=== PATIENT | male | born 1955 | race African-American/Black ===

== ENCOUNTER 2025-05-05 01:34 | Inpatient (IN) | payer OTHER, MEDICARE ==
[~2025-05-05] VITALS: Ht 177.8 cm; Wt 74.8 kg
[2025-05-05 01:44] VITALS: O2SAT 98
[2025-05-05 02:48] LABS: INR 1.1; PROTHROMBIN TIME 11.5 sec (9.6-11.0)
[2025-05-05 02:49] LABS: BASOPHILS % 0.2 % (0.0-2.0); DIFFERENTIAL COMMENT 0; EOSINOPHILS % 0.3 % (0.0-5.0); HEMATOCRIT. 41.1 % (42.0-52.0); HEMOGLOBIN. 13.9 g/dL (14.0-18.0); LYMPHOCYTES % 22.3 % (20.0-50.0); MEAN CORPUSCULAR HEMOGLOBIN 27.8 pg (28.0-32.0); MEAN CORPUSCULAR HGB CONC 33.8 g/dL (31.0-37.0); MEAN CORPUSCULAR VOLUME 82.2 fL (80.0-94.0); MEAN PLATELET VOLUME 9.8 fl (7.4-10.4); MONOCYTES % 11.4 % (2.0-8.0); NEUTROPHILS % 65.8 % (40.0-76.0); PLATELET 156 x1000/uL (130-400); WHITE BLOOD COUNT 7.7 x1000/uL (4.5-11.0)
[2025-05-05 02:50] LABS: CHLORIDE 99 mEq/L (98-107); SODIUM 138 mEq/L (136-145)
[2025-05-05 02:51] LABS: CARBON DIOXIDE 27 mEq/L (21-32)
[2025-05-05 02:54] LABS: POTASSIUM 2.4 mEq/L (3.5-5.1)
[2025-05-05 02:56] LABS: GLUCOSE 136 mg/dL (70-105); UREA NITROGEN BLOOD 17 mg/dL (9-23)
[2025-05-05 02:57] LABS: ETHANOL BLOOD < 10 mg/dL (<10)
[2025-05-05 02:58] LABS: TROPONIN I HIGH SENSITIVITY 12 ng/L (3.0-53)
[2025-05-05] MEDS: POTASSIUM CHLORIDE 20MEQ TABLET SR PO ONE (03:08)
[2025-05-05] MEDS: KCL 10MEQ/50ML PREMIX 50 ML IV SCH ×2 (03:20→12:33)
[2025-05-05] MEDS: SODIUM CHLORIDE 0.9% 1,000 ML IV ONE (03:37)
[2025-05-05 05:08] LABS: TROPONIN I HIGH SENSITIVITY 11 ng/L (3.0-53)
[2025-05-05] MEDS ORDERED: MAGNESIUM/ALUMINUM HYDROXIDE/SIMETHICONE 30ML UDC PO PRN (07:45)
[2025-05-05] MEDS ORDERED: BISACODYL 10MG SUPP PR PRN (07:45)
[2025-05-05] MEDS ORDERED: ACETAMINOPHEN 325MG TABLET PO PRN ×2 (07:45)
[2025-05-05 08:00] VITALS: BP_SYST 105; BP_SYST 112; BP_DIAS 65; BP_DIAS 66; PULSE 69; PULSE 75; RESP 16; TEMP 36.3; O2SAT 96
[2025-05-05] MEDS: HEPARIN 5000 UNITS/ML VIAL SUBCUT SCH (09:40)
[2025-05-05] MEDS: PREDNISONE 20MG TABLET PO SCH (10:15)
[2025-05-05] MEDS: SODIUM CHL 0.45% + KCL 20MEQ/L 1,000 ML IV SCH (10:19)
[2025-05-05 11:03] LABS: CARBON DIOXIDE 27 mEq/L (21-32); CHLORIDE 100 mEq/L (98-107); SODIUM 138 mEq/L (136-145)
[2025-05-05 11:04] LABS: CALCIUM 8.7 mg/dL (8.7-10.4)
[2025-05-05 11:08] LABS: CREATININE 0.8 mg/dL (0.6-1.3); THYROID STIMULATING HORMONE 0.23 uIU/mL (0.55-4.78)
[2025-05-05 11:09] LABS: GLUCOSE 154 mg/dL (70-105); UREA NITROGEN BLOOD 15 mg/dL (9-23)
[2025-05-05 11:11] LABS: PHOSPHORUS 2.8 mg/dL (2.5-4.9)
[2025-05-05] MEDS: MAGNESIUM 2 G PREMIX 50 ML IV SCH (11:21)
[2025-05-05 11:54] LABS: POTASSIUM 2.7 mEq/L (3.5-5.1)
[2025-05-05 12:00] VITALS: BP 101/80; PULSE 87; RESP 17; TEMP 36.2; O2SAT 98
[2025-05-05] MEDS: POTASSIUM CHLORIDE 20MEQ TABLET SR PO SCH (13:14)
[2025-05-05 16:00] VITALS: BP 118/78; PULSE 91; RESP 18; TEMP 36.5; O2SAT 100
[2025-05-05] MEDS ORDERED: CLOP75TA33 PO (16:34)
[2025-05-05] MEDS ORDERED: P50 PO (16:34)
[2025-05-05] MEDS ORDERED: POTA-354 MT (16:49)
[2025-05-05] MEDS ORDERED: KETOROLAC 15MG/ML VIAL IV PRN (17:00)
[2025-05-05] MEDS ORDERED: KETOROLAC 30MG/ML VIAL IV SCH (17:00)
[2025-05-05 17:13] LABS: POTASSIUM 2.9 mEq/L (3.5-5.1)
[2025-05-05 18:31] LABS: CLARITY URINE CLEAR (CLEAR); COLOR URINE DARK YELLOW (YELLOW); GLUCOSE URINE NEGATIVE (NEGATIVE); KETONES URINE TRACE (NEGATIVE); LEUKOCYTE ESTERASE URINE TRACE (NEGATIVE); NITRITE URINE NEGATIVE (NEGATIVE); OCCULT BLOOD URINE NEGATIVE (NEGATIVE); PH URINE 6.5 (4.5-8.0); PROTEIN URINE NEGATIVE (NEGATIVE); SPECIFIC GRAVITY URINE 1.023 (1.005-1.030)
[2025-05-05 18:48] LABS: *AMPHETAMINES SCREEN URINE NEGATIVE (NEGATIVE)
[2025-05-05 18:49] LABS: *BARBITURATES SCREEN URINE NEGATIVE (NEGATIVE); *BENZODIAZEPINES SCREEN URINE NEGATIVE (NEGATIVE); *COCAINE SCREEN URINE NEGATIVE (NEGATIVE); CANNABINOID URINE SCREEN NEGATIVE (NEGATIVE); ECSTASY MDMA SCREEN URINE NEGATIVE (NEGATIVE); METHADONE URINE SCREEN NEGATIVE (NEGATIVE); OPIATES URINE SCREEN NEGATIVE (NEGATIVE); PHENCYCLIDINE URINE SCREEN NEGATIVE (NEGATIVE)
[2025-05-05 20:42] LABS: BACTERIA URINE TRACE; RBC URINE 0-2 /hpf (0-2); SQUAMOUS EPITHELIAL CELL URINE FEW /lpf (RARE/1+); WBC URINE 0-2 /hpf (0-2)
[2025-05-05] MEDS ORDERED: FAMOTIDINE 20MG TABLET PO SCH (21:00)
[2025-05-06] MEDS ORDERED: ASPIRIN 81MG TABLET PO SCH (09:00)
== END 2025-05-05 18:50 | disposition left against medical advice (07) | DRG 641 ==
LOC: ER 02:14 → 7WST 04:46 → ENRESERV 06:14
PROVIDERS: ADMIT Internal Medicine; ATTEND Internal Medicine
DX: E87.6 Hypokalemia (principal); M10.9 Gout, unspecified; D64.9 Anemia, unspecified; I10 Essential (primary) hypertension; T50.2X5A Adverse effect of carbonic-anhydrase inhibitors, benzothiadiazides and other diuretics, initial encounter; Z53.29 Procedure and treatment not carried out because of patient's decision for other reasons; Z79.899 Other long term (current) drug therapy; Z86.73 Personal history of transient ischemic attack (TIA), and cerebral infarction without residual deficits; Y92.89 Other specified places as the place of occurrence of the external cause
CPT/HCPCS: 36415; 71045; 80048; 80305; 80320; 81003; 83735; 83880; 84100; 84132; 84443; 84484; 85025; 93005; 99291; J1644; J3475; J3480; J7030; J7512; G0480